=== PATIENT | female | born 1950 | race Caucasian/White ===

== ENCOUNTER 2016-10-29 12:33 | Inpatient (IN) | payer MEDICARE, BC ==
[~2016-10-29] VITALS: Ht 172.7 cm; Wt 78.7 kg
[2016-10-29] MEDS ORDERED: CLOP75TA PO (15:21)
[2016-10-29] MEDS ORDERED: FOSA70TA PO (15:23)
[2016-10-29] MEDS ORDERED: MULTTAB67 PO (15:23)
[2016-10-29] MEDS ORDERED: LOSA100T2 PO (15:23)
[2016-10-29] MEDS ORDERED: SIMV80TA PO (15:23)
[2016-11-02] VITALS (7 sets, daily range): BP systolic 107–145; BP diastolic 54–66; PULSE 61–78; RESP 16–20; TEMP 97.8–98.4; O2SAT 92–98
[2016-11-02] MEDS ORDERED: METOPROLOL TARTRATE 25 MG TAB PO PRN (06:15)
[2016-11-02] MEDS ORDERED: INSULIN HUMAN REGULAR 1,000 UNITS/10 ML VIAL SQ PRN (06:15)
[2016-11-02] MEDS ORDERED: SODIUM CHLORID 0.9% 500 ML IV PRN (06:15)
[2016-11-02] MEDS ORDERED: CHLORHEXIDINE GLUCONATE 2 % 1 PACK (2 CLOTHS) TOPICAL PRN (06:15)
[2016-11-02] MEDS ORDERED: LACTATED RINGER'S 1000 ML IV PRN (06:15)
[2016-11-02] MEDS ORDERED: POVIDONE IODINE 5% (ANTISEPSIS KIT) 4 APPLICATIONS EACH NARE PRN (06:15)
[2016-11-02] MEDS ORDERED: BUPIVACAINE HCL PF 0.5% 30 ML VIAL ONE (07:36)
[2016-11-02] MEDS ORDERED: HEPARIN SODIUM - IV 10,000 UNITS/10 ML VIAL ONE (07:36)
[2016-11-02] MEDS ORDERED: ceFAZolin 2 GM PREMIX 50 ML ONE (07:36)
[2016-11-02] MEDS ORDERED: PROTAMINE SULFATE 50 MG/5 ML VIAL ONE (07:37)
[2016-11-02] MEDS ORDERED: MIDAZOLAM HCL 2 MG/2 ML VIAL ONE (07:48)
--- NOTE | 2016-11-02 08:31 | PD.RAD ---
Post Procedure Progress Note Pre Procedure Diagnosis: (1) Thoracic aneurysm without mention of rupture Post Procedure Diagnosis: (1) Thoracic aneurysm without mention of rupture Procedure Date: Nov 02, 2016 Supervising Radiologist: Jayme Saavedra JR Proceduralist/Assist: Fanta Heath, RT(R)(CV), Shanice Church RT(R) Anesthesia: Conscious Sedation Plan of Activity Patient to Unit: ROPU Patient Condition: Good See PACS Report for procedural detail/treatment Spinal Procedure Lumbar Drain T11 Fluid Description: Clear Findings: Lumbar drain enters thecal sac at L3. Tip at T11-12 disk space. Clear CSF noted. Sampling not requested. Plan Management of drain per admitting team. Jr. Quentin,Jayme Hines MD Nov 02, 2016 08:31
[2016-11-02] MEDS ORDERED: ACETAMINOPHEN 1000 MG/100 ML VIAL IV ONE ×2 (08:59→09:08)
[2016-11-02] MEDS ORDERED: DEXMEDETOMIDINE HCL 200 MCG/2 ML VIAL ONE (08:59)
[2016-11-02] MEDS ORDERED: FAMOTIDINE 20 MG/2 ML VIAL ONE (08:59)
[2016-11-02] MEDS ORDERED: methylPREDNISolone SOD SUCC 125 MG/2 ML VIAL ONE (09:00)
--- NOTE | 2016-11-02 09:04 | HHI.HP ---
History of Present Illness Chief Complaint: thoracic aortic aneurysm History of Present Illness 66 yo female with asymptomatic thoracic aneursym, discovered incidentally during w/u with CT for diverticulitis Past/Family/Social History Past Medical History diverticulitis HTN tobacco Past Surgical History AURELIANO Social History smoker Family History NC Home Medications Reported Medications Alendronate (Fosamax)70 Mg Tab70 Mg PO Q7D #4 TAB Ref 0 10/29/16 Multiple Vitamin 1 Tab1 Tab PO DAILY Ref 0 10/29/16 Losartan-Hydrochlorothiazide 100-25 Mg Tab1 Tab PO DAILY #30 TAB Ref 0 10/29/16 Simvastatin 80 Mg Tab80 Mg PO DAILY #30 TAB Ref 0 10/29/16 Clopidogrel 75 Mg Tab75 Mg PO DAILY #30 TAB Ref 0 10/29/16 Coded Allergies: Erythromycin (Verified Allergy, Severe, RASH, 10/29/16) Review of Systems Constitutional: DENIES: Diaphoretic episodes, Fatigue, Fever, Weight gain, Weight loss, Chills, Dizziness, Change in appetite, Night Sweats Cardiovascular: DENIES: Chest pain, Palpitations, Syncope, Dyspnea on Exertion , PND, Lower Extremity Edema, Orthopnea, Claudication Gastrointestinal: DENIES: Abdominal pain, Black stools, Bloody stools, Constipation, Diarrhea, Nausea, Vomiting, Difficulty Swallowing, Anorexia Physical Exam Vitals/I&O Date Time Temp Pulse Resp B/P Pulse Ox O2 Delivery O2 Flow Rate FiO2 11/02/16 06:29 98.2 69 16 107/62 94 Neuro: alert, oriented, no focal deficits HEENT: NC/AT Neck: no JVD Heart: reg rate, no M Lungs: clear B Abdomen: nontender Vascular: palpable femoral and radial pulses Extremities: no C/C/E Laboratory Tests Test 11/02/16 06:30 Blood Type B POSITIVE Antibody Screen NEGATIVE Blood Bank Comment Assessment and Plan Plan TEVAR rec'd spinal drain this morning I have discussed all complications with patient and . phone number [phone] Kevin Blanco MD Nov 02, 2016 09:04
[2016-11-02] MEDS: LACTATED RINGER'S 1000 ML INJ 1,000 ML IV SCH ×2 (09:27→22:26)
--- NOTE | 2016-11-02 09:41 | RADRPT ---
EXAM DATE/TIME: 11/02/2016 07:40 [facility] COMPARISON: No previous studies available for comparison. INDICATIONS : Patient having lumbar drain pre op for a TAG. MEDICAL HISTORY : 1. Stroke x3 2. [place] 3. HTN 4. Colitis 5. Uterine ca 6. lt breast ca SURGIAL HISTORY : 1. Left masectomy 2. colon resection 3. Hysterectomy ENCOUNTER: Initial ACUITY: >1 year PAIN SCORE: 0/10 LUMBAR PUNCTURE TIME: 0816 hours FLUORO TIME: 1.7 minutes IMAGE SERIES: 0 SEDATION TIME: 30 minutes LEVEL: Tip of lumbar drain was placed at T11 MEDICATION(S): 1.) 2 mg midazolam (Versed) IV 2.) 100 mcg fentanyl (Sublimaze) IV DEVICE(S): 1.) 5 Danish lumbar drain catheter PROCEDURE : 1. Fluoroscopically guided lumbar drain placement. 2. Conscious sedation with continuous EKG and oximetry monitoring. The risks, benefits and alternatives to the procedure were explained and verbal and written consent w as obtained. The site was prepped in sterile fashion. Full sterile technique was used, including ca p, mask, sterile gloves and gown and a large sterile sheet. Hand hygiene and 2% chlorhexidine and/or betadine/alcohol prep was utilized per protocol for cutaneous antisepsis. The skin and subcutaneous tissues were infiltrated with local anesthetic solution. With fluoroscopic guidance the lumbar thecal sac was punctured at the L3-L4 level with a 14 gauge Jimmy hy needle and a lumbar drain was placed with its tip at the T11-T12 disc space level and the catheter was sutured in place. CSF was identified returning from the catheter at the termination of the proce dure. The CSF is clear. Conscious sedation was performed with the prescribed dosages and duration as above in the presence of an independent trained radiology nurse to assist in the monitoring of the patient. EKG and oximetry remained stable throughout the procedure. The patient tolerated the procedure well and there were n o complications. The patient was sent to post anesthesia recovery in stable condition. CONCLUSION: Uncomplicated lumbar drain placement as above. Jayme Saavedra Jr., MD on November 02, 2016 at 9:36 Board Certified Radiologist. This report was verified electronically.
[2016-11-02] MEDS ORDERED: IOHEXOL 300 MG/ML 50 ML BTL (for RAD DIAG) OTHER ONE (09:51)
[2016-11-02] MEDS ORDERED: fentaNYL CITRATE 250 MCG/5 ML AMP ONE (11:14)
--- NOTE | 2016-11-02 11:20 | HHI.PR ---
Immediate Post Op Note Procedure Date: Nov 02, 2016 Pre Op Diagnosis: descending thoracic aortic aneurysm Post Op Diagnosis: descending thoracic aortic aneurysm Surgeon: Kevin Blanco Snailer(s): Chance Juarez Procedure: TEVAR IVUS of aorta R BATTERY TECHNICIAN Perclose L BATTERY TECHNICIAN Angioseal Findings: successful exclusion of aneurysm Additional Information: + Doppler signals B LE Complications: none apparent Specimen(s) removed: none Estimated blood loss: 20mL Anesthesia: General Drains: Other (spinal drain (placed by IR preoperatively)) Fluids: 1700ml xoid; 175 mL UOP Patient to: Other (CVICU) Patient Condition: Good Implant/Devices: SEE IMPLANT LOG (if applicable) Date/Time of Procedure: SEE SURGICAL CARE RECORD Kevin Blanco MD Nov 02, 2016 11:20
[2016-11-02 11:47] LABS: HEMATOCRIT 35.7 % (35.0-46.0); MEAN CELL VOLUME 83.1 FL (80.0-100.0); MEAN CORPUSCULAR HEMOGLOBIN 27.6 PG (27.0-34.0); MEAN CORPUSCULAR HGB CONC 33.2 % (32.0-36.0); PLATELET COUNT 167 TH/MM3 (150-450); RED CELL DISTRIBUTION WIDTH 13.2 % (11.6-17.2); REVIEW FLAG FINAL; WHITE BLOOD COUNT 6.7 TH/MM3 (4.0-11.0)
[2016-11-02 11:58] LABS: POTASSIUM 3.1 MEQ/L (3.5-5.1)
[2016-11-02] MEDS ORDERED: NORMOSOL R INJ 1,000 ML IV ONE (12:00)
[2016-11-02] MEDS ORDERED: ONDANSETRON HCL 4 MG/2 ML VIAL IV PUSH ONE (12:00)
[2016-11-02] MEDS ORDERED: PHENYLEPH/NS 1000 MCG/10 ML SYR IV ONE (12:00)
[2016-11-02] MEDS ORDERED: NEOSTIGMINE 3 MG/3 ML SYR IV ONE (12:00)
[2016-11-02] MEDS ORDERED: PROPOFOL 200 MG/20 ML AMP IV ONE (12:00)
[2016-11-02] MEDS ORDERED: ePHEDrine/NS 25 MG/5 ML SYR IV ONE (12:00)
[2016-11-02] MEDS ORDERED: POTASSIUM CHLORIDE 25 MEQ EFFERVESCENT TAB PO PRN (13:15)
[2016-11-02] MEDS ORDERED: POTASSIUM CHLOR 20 MEQ PREMIX 100 ML IV PRN (13:15)
[2016-11-02] MEDS ORDERED: MAGNESIUM SULFATE INJ 2 GM in SODIUM CHLORIDE 0.9% INJ 96 ML IV PRN (13:15)
[2016-11-02] MEDS ORDERED: POTASSIUM PHOSPHATE INJ 30 MMOL in SODIUM CHLOR 0.9% 250 ML INJ 250 ML IV PRN (13:15)
[2016-11-02] MEDS ORDERED: RESP: ALBUTEROL 2.5 MG/IPRATROPIUM 0.5 MG NEB (PRN) NEB (13:15)
[2016-11-02] MEDS ORDERED: POTASSIUM PHOSPHATE MONOBASIC 500 MG TAB PO/TUBE PRN (13:15)
[2016-11-02] MEDS ORDERED: MAGNESIUM OXIDE 400 MG TAB PO PRN (13:15)
[2016-11-02] MEDS ORDERED: MAGNESIUM SULFATE INJ 4 GM in SODIUM CHLORIDE 0.9% INJ 92 ML IV PRN (13:15)
[2016-11-02] MEDS ORDERED: POTASSIUM CHLOR 40 MEQ PREMIX 100 ML IV PRN ×2 (13:15)
[2016-11-02] MEDS ORDERED: POTASSIUM PHOSPHATE MONOBASIC 500 MG TAB PO PRN (13:15)
[2016-11-02] MEDS ORDERED: IOHEXOL 300 MG/ML 100 ML BTL (for Rad CT) OTHER ONE (13:36)
--- NOTE | 2016-11-02 13:42 | RADRPT ---
EXAM DATE/TIME: 11/02/2016 12:35 [facility] COMPARISON: No previous studies available for comparison. INDICATIONS : Post Tevar surgery. MEDICAL HISTORY : Hypertension. Carcinoma, breast. Colitis,Uterine ca SURGICAL HISTORY : Hysterectomy. colon resection,Left masectomy ENCOUNTER: Subsequent ACUITY: 4 - 6 days PAIN SCORE: 0/10 LOCATION: Bilateral chest FINDINGS: Stent material is seen in the descending thoracic aorta. The heart is normal in size. There is increa sed density at the medial left lung base. The right lung demonstrates minimal increased density. No e ffusion is seen. CONCLUSION: 1. Left lower lobe consolidation or atelectasis. 2. Minimal atelectasis or consolidation at the right base. 3. Stent material in the descending thoracic aorta. Amilcar Price MD on November 02, 2016 at 13:38 Board Certified Radiologist. This report was verified electronically.
--- NOTE | 2016-11-02 14:05 | MB ---
cc: MIKEY SELBY M.D. DATE OF CONSULTATION: 11/02/2016 DATE OF : 1950 HISTORY OF PRESENT ILLNESS The patient is a 66-year-old female with a past medical history of diverticulitis, hypertension, breast cancer, who was found to have asymptomatic descending thoracic aneurysm which was discovered incidentally during a work-up with CT for diverticulitis. She underwent thoracic endovascular aortic repair by Dr. Blanco and a lumbar drain was placed by interventional radiology preoperatively. Critical care medicine was consulted post-op for critical care management. When seen in CVICU the patient is awake, alert, lying comfortable in bed, in no acute respiratory distress. She is on 3 liters oxygen with good saturation. The patient denies any chest pain, shortness of breath or any abdominal pain. In addition, she denies any nausea, vomiting or GI symptoms. PAST MEDICAL HISTORY 1. Hypertension. 2. Diverticulitis. 3. Breast cancer. 4. Hyperlipidemia. PAST SURGICAL HISTORY 1. Previous mastectomy. 2. Previous cholecystectomy. 3. Previous hysterectomy. 4. Ankle surgery. FAMILY HISTORY Noncontributory. SOCIAL HISTORY The patient quit smoking a year and a half ago, and has a [id number] history of smoking. Non-drinker. ALLERGIES ERYTHROMYCIN. MEDICATIONS Reported medications include: 1. Simvastatin. 2. Plavix. 3. Multivitamins. 4. Fosamax. 5. Losartan/hydrochlorothiazide. REVIEW OF SYSTEMS As per HPI. The rest of the review of systems is unremarkable. PHYSICAL EXAMINATION GENERAL: A 66-year-old female lying in bed in no acute respiratory distress. VITAL SIGNS: Afebrile with temperature 97.8, pulse 64, blood pressure 139/52, saturation 99% on 3 liter oxygen. HEENT: Atraumatic, normocephalic. Pupils equal, round and reactive to light and accommodation. Extraocular muscles intact. Conjunctiva pink. Anicteric sclera. Oral mucosa within normal. NECK: Supple. No JVD, adenopathy or thyromegaly. Trachea in the midline. CARDIOVASCULAR: Regular rate and rhythm. Normal S1, S2. No murmurs, rubs or gallops noted. PULMONARY: Bilateral air entry. No rales or wheezing. ABDOMEN: Soft, nontender, no distention. Positive bowel sounds. EXTREMITIES: No cyanosis, clubbing or edema. NEUROLOGIC: No focal sensory deficit. LABORATORY WBC 6.7, hemoglobin 11.8, hematocrit 35, platelet count 167. Sodium 139, potassium 3.1, chloride 103, CO2 26, BUN 21, creatinine 0.8, glucose 149, calcium 8.1. IMPRESSION 1. Respiratory insufficiency. 2. Descending thoracic aortic aneurysm. 3. Status post thoracic endovascular aneurysm repair and lumbar drain placement by interventional radiology preoperatively. 4. Hypertension. 5. Hyperlipidemia. 6. Hypokalemia. 7. History of tobacco abuse. PLAN/RECOMMENDATIONS 1. Monitor neuro status closely and avoid sedatives. The patient is on a Narcan drip at 1 mg an hour per vascular surgery. 2. Continue with Dilaudid p.r.n. for pain. 3. Continue with oxygen to maintain sats above 92%. 4. Bronchodilators in the form of DuoNeb q.6h., plus q.2h. p.r.n. for shortness of breath. 5. Monitor heart rate and blood pressure closely and maintain MAP greater than 65 mmHg. Continue with aspirin and Lipitor. 6. Monitor renal function, I's and O's, and electrolyte replacement per protocol. Will need potassium replacement. The patient is on LR at 83 mL an hour. 7. Keep n.p.o. for now and continue with Pepcid 20 mg p.o. b.i.d. Start p.o. diet once cleared by vascular surgery. 8. Monitor for signs of infection which include fever and WBC. Panculture if spikes a fever and will obtain a baseline chest x-ray post-op. 9. Sliding scale insulin if needed for glycemic control. 10.Monitor CBC. 11.GI prophylaxis with Pepcid 20 mg b.i.d. 12.DVT prophylaxis with SCDs; in addition the patient is on heparin 5000 units q.8h. starting tomorrow. 13.Further recommendations will be based on the hospital course. MD BALTA Jones/TYRONE /1:21 PM /1:40 PM
[2016-11-02] MEDS: POTASSIUM CHLOR 20 MEQ PREMIX 100 ML IV PRN ×3 (14:25→18:17)
[2016-11-02] MEDS ORDERED: DEXTROSE 5% IV SCH ×2 (17:00)
[2016-11-02] MEDS ORDERED: NALOXONE IV SCH ×2 (17:00)
[2016-11-02] MEDS ORDERED: WATER IV SCH ×2 (17:00)
[2016-11-02] MEDS: RESP: ALBUTEROL 2.5 MG/IPRATROPIUM 0.5 MG NEB (SCH) NEB ×2 (18:24→22:32)
[2016-11-02] MEDS: FAMOTIDINE 20 MG TAB PO SCH (21:34)
[2016-11-02] MEDS: DOCUSATE SODIUM 100 MG CAP PO SCH (21:34)
[2016-11-02] MEDS: ATORVASTATIN 40 MG TAB PO SCH (21:34)
--- NOTE | 2016-11-02 22:53 | MP ---
cc: QUE BLANCO MD DATE OF SURGERY 11/02/16 PREOPERATIVE DIAGNOSIS Descending thoracic aortic aneurysm POSTOPERATIVE DIAGNOSIS Descending thoracic aortic aneurysm PROCEDURE 1. Thoracic endovascular aortic stent (TEVAR) not involving left subclavian artery. 2. Intravascular ultrasound of aorta. 3. Right common femoral artery Perclose 4. Left common femoral artery Angio-Seal. ATTENDING MARIBEL Blanco MD COOPERATIVE MANAGER SURGEON Jhonatan Juarez. ANESTHESIA General INDICATIONS Ms. Jon is a 66-year old lady with a descending thoracic aortic aneurysm that measures nearly 6 cm. It appears amendable to endovascular therapy and she was taken to the operating room for this. PROCEDURE IN DETAIL Informed consent was obtained from the patient. She was taken to the operating room and placed supine on the operating table. An appropriate time out was taken to ensure the correct operative site and the planned procedure. Interventional radiology performed a spinal drain prior to surgery in order to attempt to decrease her risk of spinal cord ischemia. The patient was placed in operating room and appropriate time-out was taken and placed under general anesthesia. She was prepped from nipples to knees. A 21 gauge micropuncture needle was used to access the right common femoral artery. This was exchanged using Seldinger technique for a micropuncture sheath which is a 0.035 Storq wire was introduced and the micropuncture sheath was exchanged for a 5-Kuwaiti sheath. The 5-Kuwaiti sheath was removed and two Perclose ProGlide sutures were inserted and tagged and not tied down. These would be used later. An 8-Kuwaiti sheath was introduced. On the left-hand side a 21 gauge micropuncture needle was used to access the left common femoral artery. This was exchanged using Seldinger technique for a micropuncture sheath through which a 0.035 wire introduced and the micropuncture sheath was exchanged for a 5-Ku[place]i sheath. The patient was systemically heparinized with 8000 units of IV heparin and ACT was confirmed to be greater than 250. Storq wire was advanced to the ascending aorta and over the right hand Storq wire a catheter was placed and the Strorq was exchanged for a Lunderquist. On the left hand stroq a marker flush pigtail catheter was placed. Intravascular ultrasound catheter was then placed over the Lunderquist wire and images of the aorta were obtained. This clearly noted the location of the celiac artery and confirmed the diameters of the graft to be selected. Based on an aortic diameter of 31-33 mm a 38-mm graft was selected. The IVUS catheter was removed and the 8-Kuwaiti sheath was removed. Jyoti dilators were used to dilate the skin and subcutaneous tract and arteriotomy and the main device which was a Medtronic Valiant 38 x 200 was introduced until the distal aspect of the graft was immediately cephalad to the celiac artery. The graft was deployed without difficulty. The deployment sheath was removed and a 20-Kuwaiti Sentrant sheath was introduced. A Storq wire was passed through the pigtail catheter on the left and the pigtail was then removed and then replaced through the center of the graft. A reliant balloon was used to balloon the proximal and distal aspects and a completion angiogram showed excellent result without any perfusion of the thoracic aneurysm. The wire catheter and sheath were removed. The Perclose were tied down, providing hemostasis in the groin. There was a Doppler signal of the foot and heparin was reversed with protamine. The right groin was closed with a 4-0 Monocryl. A Storq wire was advanced to the left pigtail catheter and the pigtail catheter was removed. The 5-Kuwaiti sheath was removed and left groin was closed with a 6-Kuwaiti Angio-Seal. There were no complications. I was present and scrubbed and performed the entire procedure. MD JAGDEEP Santiago/ /11:33 AM /10:35 PM [facility]
[2016-11-03] VITALS (8 sets, daily range): BP systolic 124–152; BP diastolic 41–77; PULSE 68–81; RESP 16–18; TEMP 98–98.4; O2SAT 78–96
[2016-11-03 04:36] LABS: AUTOMATED NEUTROPHIL # 9.8 TH/MM3 (1.8-7.7); BASOPHIL % 0.1 % (0.0-2.0); HEMATOCRIT 31.1 % (35.0-46.0); HEMO FLAGS DIFF FINAL; LYMPH % 3.7 % (9.0-44.0); LYMPHOCYTE # 0.4 TH/MM3 (1.0-4.8); MEAN CELL VOLUME 82.1 FL (80.0-100.0); MEAN CORPUSCULAR HEMOGLOBIN 28.5 PG (27.0-34.0); MEAN CORPUSCULAR HGB CONC 34.8 % (32.0-36.0); MONO % 6.5 % (0.0-8.0); NEUT % 89.7 % (16.0-70.0); PLATELET COUNT 149 TH/MM3 (150-450); RED BLOOD COUNT 3.79 MIL/MM3 (4.00-5.30); RED CELL DISTRIBUTION WIDTH 13.1 % (11.6-17.2); WHITE BLOOD COUNT 10.9 TH/MM3 (4.0-11.0)
[2016-11-03 04:53] LABS: BICARBONATE 27.6 MEQ/L (21.0-32.0); MAGNESIUM 1.9 MG/DL (1.5-2.5); POTASSIUM 4.2 MEQ/L (3.5-5.1)
[2016-11-03] MEDS: RESP: ALBUTEROL 2.5 MG/IPRATROPIUM 0.5 MG NEB (SCH) NEB ×4 (04:57→20:56)
[2016-11-03] MEDS ORDERED: ONDANSETRON HCL 4 MG/2 ML VIAL ONE (05:33)
[2016-11-03] MEDS: SODIUM PHOSPHATE INJ 30 MMOL in SODIUM CHLOR 0.9% 250 ML INJ 240 ML IV PRN (07:51)
--- NOTE | 2016-11-03 08:04 | PD.VS.PN ---
Subjective POD #: 1 Procedure(s): TEVAR Subjective/Hospital Course + burping but no nausea or emesis mild headache otherwise neuro intact PRATHER no chest/back pain Objective Vitals/I&O Date Time Temp Pulse Resp B/P Pulse Ox O2 Delivery O2 Flow Rate FiO2 11/03/16 03:00 73 11/03/16 03:00 98.4 73 18 94 124/41 11/02/16 23:00 78 11/02/16 23:00 98.3 78 20 121/62 92 138/61 11/02/16 22:35 18 11/02/16 22:33 94 Nasal Cannula 1.00 11/02/16 19:00 77 11/02/16 19:00 98.2 77 18 110/54 94 138/66 11/02/16 15:34 98.4 64 18 144/56 98 11/02/16 15:00 64 11/02/16 11:00 97.8 61 16 145/61 98 11/02/16 11:00 62 11/03/16 11/03/16 11/03/16 07:00 15:00 23:00 Intake Total 2778 ml Output Total 821 ml Balance 1957 ml Exam: Neuro intact B groin access sites c/d/i without hematoma Pulses: + B LE Laboratory Laboratory Tests Test 11/02/16 11/02/16 11/02/16 11/03/16 09:51 10:05 11:10 01:30 Blood Type B POSITIVE B POSITIVE Crossmatch Leukocyte-Reduced Red Blood Cells Blood Bank Comment White Blood Count 6.7 Red Blood Count 4.30 Hemoglobin 11.8 Hematocrit 35.7 Mean Corpuscular Volume 83.1 Mean Corpuscular Hemoglobin 27.6 Mean Corpuscular Hemoglobin 33.2 Concent Red Cell Distribution Width 13.2 Platelet Count 167 Mean Platelet Volume 7.7 Sodium Level 139 Potassium Level 3.1 4.2 Chloride Level 103 Carbon Dioxide Level 26.0 Anion Gap 10 Blood Urea Nitrogen 21 Creatinine 0.81 Estimat Glomerular Filtration 70 Rate Random Glucose 149 Calcium Level 8.1 Phosphorus Level 3.0 Test 11/03/16 04:05 White Blood Count 10.9 Red Blood Count 3.79 Hemoglobin 10.8 Hematocrit 31.1 Mean Corpuscular Volume 82.1 Mean Corpuscular Hemoglobin 28.5 Mean Corpuscular Hemoglobin 34.8 Concent Red Cell Distribution Width 13.1 Platelet Count 149 Mean Platelet Volume 8.3 Neutrophils (%) (Auto) 89.7 Lymphocytes (%) (Auto) 3.7 Monocytes (%) (Auto) 6.5 Eosinophils (%) (Auto) 0.0 Basophils (%) (Auto) 0.1 Neutrophils # (Auto) 9.8 Lymphocytes # (Auto) 0.4 Monocytes # (Auto) 0.7 Eosinophils # (Auto) 0.0 Basophils # (Auto) 0.0 CBC Comment DIFF FINAL Differential Comment Sodium Level 139 Potassium Level 4.2 Chloride Level 106 Carbon Dioxide Level 27.6 Anion Gap 5 Blood Urea Nitrogen 16 Creatinine 0.75 Estimat Glomerular Filtration 77 Rate Random Glucose 117 Calcium Level 7.6 Phosphorus Level 2.2 Magnesium Level 1.9 Assessment and Plan Plan POD#1 s/p TEVAR, neuro intact 1. Clamp spinal drain and continue q1h neuro checks - anticipate removal of drain tomorrow 2. Hold sq heparin until 24h after drain out 3. Reg diet 4. HOB 30deg 5. HL IVF 6. Goal SBP about 140 still Discharge Planning likely Tue/Tue Kevin Blanco MD Nov 03, 2016 08:03
--- NOTE | 2016-11-03 08:43 | HHI.CCPN ---
Subjective Remarks/Hospital Course HPI The patient is a 66-year-old female with a past medical history of diverticulitis, hypertension, breast cancer who was found to have descending thoracic aneurysm which was discovered incidentally with a CT imaging for diverticulitis. She underwent thoracic endovascular aortic repair by Dr. Blanco and a lumbar drain was placed by interventional radiology preoperatively. Critical care medicine was consulted postoperatively for critical care management. When seen in CVICU the patient is awake, alert, lying comfortably fully in bed, in no acute respiratory distress. She is on 3 L nasal cannula oxygen with good saturation. The patient denies any chest pain, shortness of breath or any abdominal pain. In addition she denies any nausea vomiting or GI symptoms. Subjective: 11/03: Afebrile.Overnight the patient's systolic blood pressure was maintained 135 to 140s. The patient complained of gaseous abdominal distention patient received Zofran 1 dose and sincere beck with resolution of symptoms.. The patient oxygen level requirements have decreased currently at 1 L/m. The patient's tolerating a heart healthy diet. Objective Vital Signs Date Time Temp Pulse Resp B/P Pulse Ox O2 Delivery O2 Flow Rate FiO2 11/03/16 03:00 73 11/03/16 03:00 98.4 18 94 124/41 11/02/16 22:33 Nasal Cannula 1.00 Intake and Output 11/02/16 11/02/16 11/03/16 08:00 16:00 00:00 Intake Total 1372 ml Output Total 987 ml Balance 385 ml Result Diagram: 11/03/16 0405 11/03/16 0405 Imaging Last Impressions Lumbar Puncture Fluoroscopy 11/02/16 0000 Signed Impressions: Service Date/Time: Wednesday, November 02, 2016 07:40 - CONCLUSION: Uncomplicated lumbar drain placement as above. Jayme Saavedra Jr., MD Chest X-Ray 11/02/16 0000 Signed Impressions: Service Date/Time: Wednesday, November 02, 2016 12:35 - CONCLUSION: 1. Left lower lobe consolidation or atelectasis. 2. Minimal atelectasis or consolidation at the right base. 3. Stent material in the descending thoracic aorta. Amilcar Price MD Objective Remarks GENERAL: Well-developed well-nourished female in no apparent distress resting comfortably in bed SKIN: Warm and dry. HEAD: Atraumatic. Normocephalic. EYES: Pupils equal and round. No scleral icterus. No injection or drainage. ENT: No nasal bleeding or discharge. Mucous membranes pink and moist. NECK: Trachea midline. No JVD. CARDIOVASCULAR: Normal rate, regular rhythm. RESPIRATORY: No accessory muscle use. Clear to auscultation. Breath sounds equal bilaterally. GASTROINTESTINAL: Abdomen soft, non-tender, nondistended. No guarding. MUSCULOSKELETAL: Extremities without clubbing, cyanosis, or edema. No obvious deformities. Noted bruising bilateral great toe secondary to injury received approximately 1 month ago, no erythema or drainage. NEUROLOGICAL: Awake and alert. RASS 0. No gross focal/sensory deficits. Follows commands in all 4 extremities. Lumbar drain in situ draining clear CSF. No edema drainage noted at lumbar drain site.Motor strength 5/5 bilateral upper and lower extremities A/P Assessment and Plan IMPRESSION 1. Respiratory insufficiency. 2. Descending thoracic aortic aneurysm. 3. Status post thoracic endovascular aneurysm repair and lumbar drain placement , POD #1 by interventional radiology preoperatively. 4. Hypertension. 5. Hyperlipidemia. 6. Hypokalemia. 7. History of tobacco abuse. PLAN/RECOMMENDATIONS 1. Monitor neuro status closely and avoid sedatives. The patient is on a Narcan drip 1mcg/kg/hr per vascular surgery management. 2. Continue with Dilaudid p.r.n. for pain. 3. Continue with oxygen to maintain sats above 92%. 4. Bronchodilators in the form of DuoNeb q.6h., plus q.2h. p.r.n. for shortness of breath. 5. Monitor heart rate and blood pressure closely and maintain SBP 140-160's. Continue with aspirin and Lipitor. 6. Monitor renal function, I's and O's, and electrolyte replacement per protocol. Will need potassium replacement. The patient is on LR at 83 mL an hour. 7. Heart healthy diet and continue with Pepcid 20 mg p.o. b.i.d. 8. Monitor for signs of infection which include fever and WBC. Panculture if spikes a fever and will obtain a baseline chest x-ray post-op. 9. Sliding scale insulin if needed for glycemic control. 10.Monitor CBC. 11.GI prophylaxis with Pepcid 20 mg b.i.d. 12.DVT prophylaxis with SCDs; in addition the patient is on heparin 5000 units q.8h. starting post removal of lumbar drain. 13.Further recommendations will be based on the hospital course. Dispo: Discussed with BUSINESS SERVICES COORDINATOR and patient at bedside. All questions answered. Level 3 Physician Martha Cooper MD Nov 03, 2016 08:43
[2016-11-03] MEDS: FAMOTIDINE 20 MG TAB PO SCH ×2 (09:51→21:54)
[2016-11-03] MEDS: ASPIRIN 81 MG CHEW TAB PO SCH (09:51)
[2016-11-03] MEDS: DOCUSATE SODIUM 100 MG CAP PO SCH ×2 (09:51→21:54)
[2016-11-03] MEDS ORDERED: HEPARIN SODIUM - SQ 10,000 UNITS/ML VIAL SQ SCH (10:00)
[2016-11-03] MEDS: ONDANSETRON HCL 4 MG/2 ML VIAL IV PUSH PRN ×2 (12:47→18:13)
[2016-11-03] MEDS: ATORVASTATIN 40 MG TAB PO SCH (21:55)
[2016-11-04] VITALS (7 sets, daily range): BP systolic 113–169; BP diastolic 59–80; PULSE 64–77; RESP 18; TEMP 98.7–99.8; O2SAT 92–99
[2016-11-04] MEDS: ONDANSETRON HCL 4 MG/2 ML VIAL IV PUSH PRN (01:42)
[2016-11-04] MEDS: RESP: ALBUTEROL 2.5 MG/IPRATROPIUM 0.5 MG NEB (SCH) NEB ×4 (04:04→21:36)
[2016-11-04 04:29] LABS: HEMATOCRIT 30.6 % (35.0-46.0); MEAN CELL VOLUME 82.4 FL (80.0-100.0); MEAN CORPUSCULAR HEMOGLOBIN 28.2 PG (27.0-34.0); MEAN CORPUSCULAR HGB CONC 34.2 % (32.0-36.0); PLATELET COUNT 135 TH/MM3 (150-450); RED BLOOD COUNT 3.71 MIL/MM3 (4.00-5.30); RED CELL DISTRIBUTION WIDTH 13.2 % (11.6-17.2); REVIEW FLAG FINAL; WHITE BLOOD COUNT 8.3 TH/MM3 (4.0-11.0)
[2016-11-04 05:01] LABS: BICARBONATE 29.3 MEQ/L (21.0-32.0); MAGNESIUM 1.8 MG/DL (1.5-2.5); POTASSIUM 3.6 MEQ/L (3.5-5.1)
--- NOTE | 2016-11-04 06:25 | RADRPT ---
EXAM DATE/TIME: 11/04/2016 06:03 [facility] COMPARISON: No previous studies available for comparison. INDICATIONS : Abdominal pain. MEDICAL HISTORY : Hypertension. Carcinoma, breast. Colitis SURGICAL HISTORY : Hysterectomy. Colon resection. Mastectomy, left. Tevar ENCOUNTER: Initial ACUITY: 2 days PAIN SCORE: 0/10 LOCATION: Bilateral Abdomen FINDINGS: Gas is seen in multiple nondistended loops of small and large bowel. Catheter projects over the righ t abdomen. Rectal probe in place. Thoracic aortic stent. Left lower lobe consolidation. Hemoclips in the right midabdomen. CONCLUSION: No dilated loops of small or large bowel. Jayme De Paz MD on November 04, 2016 at 6:23 Board Certified Radiologist. This report was verified electronically.
[2016-11-04] MEDS: SODIUM PHOSPHATE INJ 30 MMOL in SODIUM CHLOR 0.9% 250 ML INJ 240 ML IV PRN (07:32)
--- NOTE | 2016-11-04 07:40 | HHI.CCPN ---
Subjective Remarks/Hospital Course HPI The patient is a 66-year-old female with a past medical history of diverticulitis, hypertension, breast cancer who was found to have descending thoracic aneurysm which was discovered incidentally with a CT imaging for diverticulitis. She underwent thoracic endovascular aortic repair by Dr. Blanco and a lumbar drain was placed by interventional radiology preoperatively. Critical care medicine was consulted postoperatively for critical care management. When seen in CVICU the patient is awake, alert, lying comfortably fully in bed, in no acute respiratory distress. She is on 3 L nasal cannula oxygen with good saturation. The patient denies any chest pain, shortness of breath or any abdominal pain. In addition she denies any nausea vomiting or GI symptoms. Subjective: 11/03: Afebrile.Overnight the patient's systolic blood pressure was maintained 135 to 140s. The patient complained of gaseous abdominal distention patient received Zofran 1 dose and sincere beck with resolution of symptoms.. The patient oxygen level requirements have decreased currently at 1 L/m. The patient's tolerating a heart healthy diet. 11/04: Afebrile .Patient complained of insomnia last night. Patient also had one episode of nausea, and complained of excessive gas/ indigestion. She received 1 dose of Zofran last evening. Simethicone chews added to medication regimen. Objective Vital Signs Date Time Temp Pulse Resp B/P Pulse Ox O2 Delivery O2 Flow Rate FiO2 11/04/16 07:21 98 Simple Mask 15.00 11/04/16 03:00 99.6 77 18 164/80 Intake and Output 11/03/16 11/03/16 11/04/16 08:00 16:00 00:00 Intake Total 2778 ml 920 ml Output Total 821 ml 700 ml Balance 1957 ml 220 ml Result Diagram: 11/04/16 0355 11/04/16 0355 Imaging Last Impressions Lumbar Puncture Fluoroscopy 11/02/16 0000 Signed Impressions: Service Date/Time: Wednesday, November 02, 2016 07:40 - CONCLUSION: Uncomplicated lumbar drain placement as above. Jayme Saavedra Jr., MD Chest X-Ray 11/02/16 0000 Signed Impressions: Service Date/Time: Wednesday, November 02, 2016 12:35 - CONCLUSION: 1. Left lower lobe consolidation or atelectasis. 2. Minimal atelectasis or consolidation at the right base. 3. Stent material in the descending thoracic aorta. Amilcar Price MD Objective Remarks GENERAL: Well-developed well-nourished female in no apparent distress resting comfortably in bed SKIN: Warm and dry. HEAD: Atraumatic. Normocephalic. EYES: Pupils equal and round. No scleral icterus. No injection or drainage. ENT: No nasal bleeding or discharge. Mucous membranes pink and moist. NECK: Trachea midline. No JVD. CARDIOVASCULAR: Normal rate, regular rhythm. RESPIRATORY: No accessory muscle use. Clear to auscultation. Breath sounds equal bilaterally. GASTROINTESTINAL: Abdomen soft, non-tender, nondistended. No guarding. MUSCULOSKELETAL: Extremities without clubbing, cyanosis, or edema. No obvious deformities. Noted bruising bilateral great toe secondary to injury received approximately 1 month ago, no erythema or drainage. NEUROLOGICAL: Awake and alert. RASS 0. No gross focal/sensory deficits. Follows commands in all 4 extremities. Lumbar drain in situ clamped. No edema drainage noted at lumbar drain site.Motor strength 5/5 bilateral upper and lower extremities. Brisk capillary refill. A/P Assessment and Plan IMPRESSION 1. Respiratory insufficiency. 2. Descending thoracic aortic aneurysm. 3. Status post thoracic endovascular aneurysm repair and lumbar drain placement , POD #1 by interventional radiology preoperatively. 4. Hypertension. 5. Hyperlipidemia. 6. Hypokalemia. 7. History of tobacco abuse. PLAN/RECOMMENDATIONS 1. Monitor neuro status closely and avoid sedatives. The patient is on a Narcan drip 1mcg/kg/hr per vascular surgery management. Melatonin 5 mg every at bedtime when necessary for insomnia 2. Continue with Dilaudid p.r.n. for pain. 3. Continue with oxygen to maintain sats above 92%. 4. Bronchodilators in the form of DuoNeb q.6h., plus q.2h. p.r.n. for shortness of breath. 5. Monitor heart rate and blood pressure closely and maintain SBP 140-160's. Continue with aspirin and Lipitor. 6. Monitor renal function, I's and O's, and electrolyte replacement per protocol. Repletion phosphorus this a.m. 7. Heart healthy diet and continue with Pepcid 20 mg p.o. b.i.d. , Simethicone chew after meals and before bedtime PRN . 8. Monitor for signs of infection which include fever and WBC. Panculture if spikes a fever and will obtain a baseline chest x-ray post-op. 9. Sliding scale insulin if needed for glycemic control. 10.Monitor CBC. 11.GI prophylaxis with Pepcid 20 mg b.i.d. 12.DVT prophylaxis with SCDs; in addition the patient is on heparin 5000 units q.8h. starting post removal of lumbar drain(11/05). Plan removal of drain this a.m. 13. Encourage incentive spirometry use Q one hour while awake 14.Further recommendations will be based on the hospital course. Dispo: Discussed with CLINICAL SERVICES PROFESSIONAL and patient at bedside. All questions answered. Thank you for the participation in care of this patient. Critical care medicine will sign off. Level 2 Physician Martha Cooper MD Nov 04, 2016 07:40
--- NOTE | 2016-11-04 08:51 | PD.VS.PN ---
Subjective POD #: 2 Procedure(s): TEVAR Subjective/Hospital Course less burping, still no nausea - KUB unremarkable Neuro intact no CALLEJAS Objective Vitals/I&O Date Time Temp Pulse Resp B/P Pulse Ox O2 Delivery O2 Flow Rate FiO2 11/04/16 07:21 98 Simple Mask 15.00 11/04/16 03:00 99.6 77 18 164/80 93 11/04/16 03:00 77 11/03/16 23:00 98.2 81 18 149/73 93 11/03/16 23:00 81 11/03/16 20:53 95 Nasal Cannula 1.00 11/03/16 19:00 98.2 78 18 152/77 95 11/03/16 19:00 78 11/03/16 15:00 75 11/03/16 15:00 98.0 68 18 141/72 93 11/03/16 11:00 72 11/03/16 11:00 98.0 71 16 146/68 96 11/03/16 09:11 95 Nasal Cannula 1.00 11/04/16 11/04/16 11/04/16 06:59 14:59 22:59 Intake Total 583 ml Output Total 900 ml Balance -317 ml Exam: 07/23 B LE strength Groins ok Laboratory Laboratory Tests Test 11/04/16 03:55 White Blood Count 8.3 Red Blood Count 3.71 Hemoglobin 10.5 Hematocrit 30.6 Mean Corpuscular Volume 82.4 Mean Corpuscular Hemoglobin 28.2 Mean Corpuscular Hemoglobin 34.2 Concent Red Cell Distribution Width 13.2 Platelet Count 135 Mean Platelet Volume 8.4 Sodium Level 134 Potassium Level 3.6 Chloride Level 101 Carbon Dioxide Level 29.3 Anion Gap 4 Blood Urea Nitrogen 8 Creatinine 0.65 Estimat Glomerular Filtration 91 Rate Random Glucose 116 Calcium Level 7.6 Phosphorus Level 1.9 Magnesium Level 1.8 Assessment and Plan Plan POD#2 s/p TEVAR, neuro intact 1. Remove spinal drain at 1000 and continue q1h neuro checks 2. OOB/PT/Soto out after drain out 3. Reg diet, normalize 4. ok to transfer to [facility] 6h after drain out 5. D/C a-[place] Discharge Planning likely Tue/Tue Kevin Blanco MD Nov 04, 2016 08:51
[2016-11-04] MEDS: FAMOTIDINE 20 MG TAB PO SCH ×2 (09:00→21:04)
[2016-11-04] MEDS: SIMETHICONE 80 MG CHEWABLE TAB CHEW PRN ×4 (09:00→17:35)
[2016-11-04] MEDS ORDERED: MELATONIN 5 MG TAB PO PRN (09:00)
[2016-11-04] MEDS: ASPIRIN 81 MG CHEW TAB PO SCH (09:00)
[2016-11-04] MEDS: DOCUSATE SODIUM 100 MG CAP PO SCH ×2 (09:00→21:04)
[2016-11-04] MEDS: ATORVASTATIN 40 MG TAB PO SCH (21:04)
[2016-11-04] MEDS: HYDROmorphone HCL 2 MG TAB PO PRN (21:05)
[2016-11-05] VITALS: BP 117/68; PULSE 69; PULSE 70; RESP 18; O2SAT 93
[2016-11-05 04:00] VITALS: BP 131/70; PULSE 70; PULSE 96; RESP 18; TEMP 98.6; O2SAT 94
[2016-11-05] MEDS: HYDROmorphone HCL 2 MG TAB PO PRN (04:15)
[2016-11-05] MEDS: RESP: ALBUTEROL 2.5 MG/IPRATROPIUM 0.5 MG NEB (SCH) NEB ×2 (04:28→09:37)
[2016-11-05 07:00] VITALS: BP 117/60; PULSE 69; PULSE 71; RESP 18; TEMP 98.6; O2SAT 94
--- NOTE | 2016-11-05 08:26 | PD.VS.PN ---
Subjective POD #: 3 Procedure(s): TEVAR Subjective/Hospital Course spinal drain out alejandro reg food OOB and ambulating voiding on own feels great overall Objective Vitals/I&O Date Time Temp Pulse Resp B/P Pulse Ox O2 Delivery O2 Flow Rate FiO2 11/05/16 04:00 70 11/05/16 04:00 98.6 96 18 131/70 94 11/05/16 00:00 69 18 117/68 93 11/05/16 00:00 70 11/04/16 21:30 97 Nasal Cannula 2.00 11/04/16 20:00 74 11/04/16 20:00 99.1 74 18 113/59 92 11/04/16 15:00 99.8 64 18 126/66 94 11/04/16 15:00 70 11/04/16 11:00 99.1 75 18 130/66 95 Arterial Line 11/04/16 11:00 70 11/05/16 11/05/16 11/05/16 07:00 15:00 23:00 Intake Total 440 ml Output Total 750 ml Balance -310 ml Exam: neuro intact no chest tenderness Assessment and Plan Plan POD#3 s/p TEVAR, neuro intact after spinal drain removed yesterday; alejandro diet 1. D/C to home today 2. F/u 3 weeks with CTA C/A/P Discharge Planning likely Tue/Tue Kevin Blanco MD Nov 05, 2016 08:26
[2016-11-05] MEDS: FAMOTIDINE 20 MG TAB PO SCH (08:30)
[2016-11-05] MEDS: ASPIRIN 81 MG CHEW TAB PO SCH (08:30)
[2016-11-05] MEDS: DOCUSATE SODIUM 100 MG CAP PO SCH (08:30)
[2016-11-05] MEDS: SIMETHICONE 80 MG CHEWABLE TAB CHEW PRN (08:31)
[2016-11-05] MEDS ORDERED: PERC5TAB12 PO (08:35)
--- NOTE | 2016-11-05 08:42 | PD.VS.DC ---
Discharge Summary Admission Date: Nov 02, 2016 at 05:43 Discharge Date: Nov 05, 2016 Admission Diagnosis: (1) Thoracic aneurysm without mention of rupture Discharge Diagnosis: (1) Thoracic aneurysm without mention of rupture Status: Acute Brief History from admission 66 yo female with asymptomatic thoracic aneurysm, discovered incidentally during w/u with CT for diverticulitis Procedure(s): TEVAR Significant Findings GENERAL: A&OX3, GCS15,NAD SKIN: Warm and dry/ Bilat groins soft w/o hematoma, erythema present to R groin GASTROINTESTINAL: Abdomen soft, non-tender, nondistended. + BS MUSCULOSKELETAL: No cyanosis, or edema. Pt denies back or abdominal pain Laboratory Tests Test 11/02/16 11/03/16 11/04/16 11:10 04:05 03:55 Potassium Level 3.1 MEQ/L (3.5-5.1) Blood Urea Nitrogen 21 MG/DL (7-18) Estimat Glomerular Filtration 70 ML/MIN (>89) 77 ML/MIN (>89) Rate Random Glucose 149 MG/DL 117 MG/DL 116 MG/DL (74-106) (74-106) (74-106) Calcium Level 8.1 MG/DL 7.6 MG/DL 7.6 MG/DL (8.5-10.1) (8.5-10.1) (8.5-10.1) Red Blood Count 3.79 MIL/MM3 3.71 MIL/MM3 (4.00-5.30) (4.00-5.30) Hemoglobin 10.8 GM/DL 10.5 GM/DL (11.6-15.3) (11.6-15.3) Hematocrit 31.1 % 30.6 % (35.0-46.0) (35.0-46.0) Platelet Count 149 TH/MM3 135 TH/MM3 (150-450) (150-450) Neutrophils (%) (Auto) 89.7 % (16.0-70.0) Lymphocytes (%) (Auto) 3.7 % (9.0-44.0) Neutrophils # (Auto) 9.8 TH/MM3 (1.8-7.7) Lymphocytes # (Auto) 0.4 TH/MM3 (1.0-4.8) Phosphorus Level 2.2 MG/DL 1.9 MG/DL (2.5-4.9) (2.5-4.9) Sodium Level 134 MEQ/L (136-145) Anion Gap 4 MEQ/L (5-15) Hospital Course: 66 yo female with asymptomatic thoracic aneurysm, discovered incidentally during w/u with CT for diverticulitis Pt s/p TEVAR w/o complications Pt w/o abdominal/ back pain Allergies Coded Allergies Type Severity Reaction Last Updated Verified erythromycin base Allergy Severe RASH 11/02/16 Yes Recent Impressions Abdomen X-Ray 11/04/16 0000 Signed Impressions: Service Date/Time: October 06:03 - CONCLUSION: No dilated loops of small or large bowel. Jayme De Paz MD ///// 06:00 18:00 06:00 18:00 06:00 18:00 Intake Total 2778 ml 920 ml 583 ml 1209 ml Output Total 821 ml 700 ml 900 ml 1750 ml Balance 1957 ml 220 ml -317 ml -541 ml Intake Oral 740 ml 200 ml 480 ml 920 ml IV Total 2038 ml 720 ml 103 ml 289 ml Output Urine Total 685 ml 700 ml 900 ml 1750 ml Drainage Total 136 ml 0 ml 0 ml 0 ml # Bowel Movements 0 0 0 0 Laboratory Tests Test 11/02/16 11/02/16 11/02/16 11/03/16 09:51 10:05 11:10 01:30 Blood Type B POSITIVE B POSITIVE Crossmatch Leukocyte-Reduced Red Blood Cells Blood Bank Comment White Blood Count 6.7 TH/MM3 Red Blood Count 4.30 MIL/MM3 Hemoglobin 11.8 GM/DL Hematocrit 35.7 % Mean Corpuscular Volume 83.1 FL Mean Corpuscular Hemoglobin 27.6 PG Mean Corpuscular Hemoglobin 33.2 % Concent Red Cell Distribution Width 13.2 % Platelet Count 167 TH/MM3 Mean Platelet Volume 7.7 FL Sodium Level 139 MEQ/L Potassium Level 3.1 MEQ/L 4.2 MEQ/L Chloride Level 103 MEQ/L Carbon Dioxide Level 26.0 MEQ/L Anion Gap 10 MEQ/L Blood Urea Nitrogen 21 MG/DL Creatinine 0.81 MG/DL Estimat Glomerular Filtration 70 ML/MIN Rate Random Glucose 149 MG/DL Calcium Level 8.1 MG/DL Phosphorus Level 3.0 MG/DL Test 11/03/16 11/04/16 04:05 03:55 White Blood Count 10.9 TH/MM3 8.3 TH/MM3 Red Blood Count 3.79 MIL/MM3 3.71 MIL/MM3 Hemoglobin 10.8 GM/DL 10.5 GM/DL Hematocrit 31.1 % 30.6 % Mean Corpuscular Volume 82.1 FL 82.4 FL Mean Corpuscular Hemoglobin 28.5 PG 28.2 PG Mean Corpuscular Hemoglobin 34.8 % 34.2 % Concent Red Cell Distribution Width 13.1 % 13.2 % Platelet Count 149 TH/MM3 135 TH/MM3 Mean Platelet Volume 8.3 FL 8.4 FL Neutrophils (%) (Auto) 89.7 % Lymphocytes (%) (Auto) 3.7 % Monocytes (%) (Auto) 6.5 % Eosinophils (%) (Auto) 0.0 % Basophils (%) (Auto) 0.1 % Neutrophils # (Auto) 9.8 TH/MM3 Lymphocytes # (Auto) 0.4 TH/MM3 Monocytes # (Auto) 0.7 TH/MM3 Eosinophils # (Auto) 0.0 TH/MM3 Basophils # (Auto) 0.0 TH/MM3 CBC Comment DIFF FINAL Differential Comment Sodium Level 139 MEQ/L 134 MEQ/L Potassium Level 4.2 MEQ/L 3.6 MEQ/L Chloride Level 106 MEQ/L 101 MEQ/L Carbon Dioxide Level 27.6 MEQ/L 29.3 MEQ/L Anion Gap 5 MEQ/L 4 MEQ/L Blood Urea Nitrogen 16 MG/DL 8 MG/DL Creatinine 0.75 MG/DL 0.65 MG/DL Estimat Glomerular Filtration 77 ML/MIN 91 ML/MIN Rate Random Glucose 117 MG/DL 116 MG/DL Calcium Level 7.6 MG/DL 7.6 MG/DL Phosphorus Level 2.2 MG/DL 1.9 MG/DL Magnesium Level 1.9 MG/DL 1.8 MG/DL Procedure Category Date Status Time Acetaminophen Inj MED 11/02/16 Complete (Ofirmev Inj) 08:59 Dexmedetomidine Inj MED 11/02/16 In Process (Precedex Inj) 08:59 Famotidine Inj MED 11/02/16 Complete (Pepcid Inj) 08:59 Methylprednisolone So MED 11/02/16 Complete Succ Inj (Solumedr 09:00 Acetaminophen Inj MED 11/02/16 Complete (Ofirmev Inj) 09:08 Admit To Inpatient ADMITTING 11/02/16 Transmitted Code Status CODE 11/02/16 Transmitted 09:27 Vital Signs (Adult) JOSE G 11/02/16 In Process 09:27 Embossing Tool Setter / JOSE G 11/02/16 In Process Telemetry 09:27 Activity Bed Rest JOSE G 11/02/16 In Process 09:27 Notify Parameters JOSE G 11/02/16 In Process 09:27 Precautions JOSE G 11/02/16 In Process 09:27 Diet Npo DIET 11/02/16 Complete Breakfast Basic Metabolic Panel LAB 11/02/16 Complete (Bmp) 09:27 Basic Metabolic Panel LAB 11/03/16 Complete (Bmp) 06:00 Cbc No Diff, Includes LAB 11/02/16 Complete Plts 09:27 Chest, Single Ap RADDIAG 11/02/16 Resulted Consult Casino Supervisor CONS 11/02/16 Transmitted Lactated Ringer's MED 11/02/16 Complete 1000 Ml Inj (Lr 1000 M 09:27 Aspirin Chew (Aspirin MED 11/03/16 In Process Chew) 09:00 Famotidine (Pepcid) MED 11/02/16 In Process 21:00 Atorvastatin (Lipitor) MED 11/02/16 In Process 21:00 Oxycodone (Roxicodone) MED 11/02/16 In Process 09:30 Hydromorphone MED 11/02/16 In Process (Dilaudid) 09:30 Docusate Sodium MED 11/02/16 In Process (Colace) 21:00 Scd Bilateral/Knee JOSE G 11/02/16 In Process High 09:27 Inpatient ADMITTING 11/02/16 Transmitted Certification ^ Other Nursing Orders JOSE G 11/02/16 In Process 09:27 (Hub Use Only)Inp Phy CONS 11/02/16 Transmitted Cons/Ref 10:21 Am [facility] Complete Iohexol 300 Inj MED 11/02/16 Complete (Omnipaque 300 Inj) 09:51 Fentanyl Inj MED 11/02/16 Complete (Fentanyl Inj) 11:14 Heparin Inj (Heparin MED 11/03/16 Complete Inj) 10:00 ^ Medication Admin JOSE G 11/02/16 In Process Instruction 13:[address]: Jake JOSE G 11/02/16 In Process 13:01 Phosphorus (Po4) LAB 11/02/16 Complete 13:01 Potassium Chlor 40 MED 11/02/16 In Process Meq Premix (Kcl 40 Me 13:15 Potassium Chlor 20 MED 11/02/16 In Process Meq Premix (Kcl 20 Me 13:15 Potassium Chloride MED 11/02/16 In Process Eff (K-Lyte Cl Eff) 13:15 Potassium Chlor 40 MED 11/02/16 In Process Meq Premix (Kcl 40 Me 13:15 Potassium Chlor 20 MED 11/02/16 In Process Meq Premix (Kcl 20 Me 13:15 Magnesium Sulfate Inj MED 11/02/16 In Process (Magnesium Sulfate 13:15 Magnesium Oxide MED 11/02/16 In Process (Mag-Ox) 13:15 Magnesium Sulfate Inj MED 11/02/16 In Process (Magnesium Sulfate 13:15 Potassium Phosphate MED 11/02/16 In Process (K-Phos) 13:15 Sodium Phosphate Inj MED 11/02/16 In Process (Sodium Phosphate I 13:15 Potassium Phosphate MED 11/02/16 In Process (K-Phos) 13:15 Potassium Phosphate MED 11/02/16 In Process Inj (Potassium Phosp 13:15 Albuterol-Ipratropium MED 11/02/16 In Process Neb (Duoneb Neb) 16:00 Albuterol-Ipratropium MED 11/02/16 In Process Neb (Duoneb Neb) 13:15 Complete Blood Count LAB 11/03/16 Complete With Diff 06:00 Magnesium (Mg) LAB 11/03/16 Complete 06:00 Phosphorus (Po4) LAB 11/03/16 Complete 06:00 Diet Heart Healthy DIET 11/02/16 Transmitted Dinner ^ Other Nursing Orders JOSE G 11/02/16 In Process 16:18 Naloxone Inj (Narcan MED 11/02/16 Complete Inj) 17:00 Potassium, Serum (K) LAB 11/03/16 Complete 01:34 Ondansetron Inj MED 11/03/16 Complete (Zofran Inj) 05:33 Ondansetron Inj MED 11/03/16 In Process (Zofran Inj) 06:15 Heparin Inj (Heparin MED 11/05/16 In Process Inj) 10:00 ^ Other Nursing Orders JOSE G 11/03/16 In Process 07:59 Resp Incentive RSP 11/03/16 Complete Spirometry Basic Metabolic Panel LAB 11/04/16 Complete (Bmp) 06:00 Cbc No Diff, Includes LAB 11/04/16 Complete Plts 06:00 Magnesium (Mg) LAB 11/04/16 Complete 06:00 Phosphorus (Po4) LAB 11/04/16 Complete 06:00 Abdomen, Kub Only RADDIAG 11/04/16 Resulted Simethicone Chew MED 11/04/16 In Process (Mylicon Chew) 07:30 Melatonin (Melatonin) MED 11/04/16 In Process 09:00 Cbc No Diff, Includes LAB 11/05/16 In Process Plts 06:00 Basic Metabolic Panel LAB 11/05/16 In Process (Bmp) 06:00 ^ Other Nursing Orders JOSE G 11/04/16 In Process 08:41 ^ Other Nursing Orders JOSE G 11/04/16 In Process 08:41 ^ Other Nursing Orders JOSE G 11/04/16 In Process 08:41 ^ Other Nursing Orders JOSE G 11/04/16 In Process 08:41 ^ Other Nursing Orders JOSE G 11/04/16 In Process 08:41 Consult Pt Eval & Tx PT 11/04/16 Logged OOB 08:41 ^ Other Nursing Orders JOSE G 11/04/16 In Process 08:41 Invasive Rad Dept RADINV 11/04/16 Taken Consult 10:00 Patient Transfer ADMITTING 11/04/16 Transmitted 16:30 Attending Discharge DISCHARGE 11/05/16 Transmitted Order Vital Signs Date Time Temp Pulse Resp B/P Pulse Ox O2 Delivery O2 Flow Rate FiO2 11/05/16 04:00 70 11/05/16 04:00 98.6 96 18 131/70 94 11/05/16 00:00 69 18 117/68 93 11/05/16 00:00 70 11/04/16 21:30 97 Nasal Cannula 2.00 11/04/16 20:00 74 11/04/16 20:00 99.1 74 18 113/59 92 11/04/16 15:00 99.8 64 18 126/66 94 11/04/16 15:00 70 11/04/16 11:00 99.1 75 18 130/66 95 Arterial Line 11/04/16 11:00 70 11/04/16 07:21 98 Simple Mask 15.00 11/04/16 07:00 98.7 73 18 169/71 99 11/04/16 07:00 67 11/04/16 03:00 99.6 77 18 164/80 93 11/04/16 03:00 77 11/03/16 23:00 98.2 81 18 149/73 93 11/03/16 23:00 81 11/03/16 20:53 95 Nasal Cannula 1.00 11/03/16 19:00 98.2 78 18 152/77 95 11/03/16 19:00 78 11/03/16 15:00 75 11/03/16 15:00 98.0 68 18 141/72 93 11/03/16 11:00 72 11/03/16 11:00 98.0 71 16 146/68 96 11/03/16 09:11 95 Nasal Cannula 1.00 11/03/16 07:00 72 11/03/16 07:00 98.0 74 18 133/63 95 Automatic Cuff 11/03/16 03:00 73 11/03/16 03:00 98.4 73 18 94 124/41 11/02/16 23:00 78 11/02/16 23:00 98.3 78 20 121/62 92 138/61 11/02/16 22:35 18 11/02/16 22:33 94 Nasal Cannula 1.00 11/02/16 19:00 77 11/02/16 19:00 98.2 77 18 110/54 94 138/66 11/02/16 15:34 98.4 64 18 144/56 98 11/02/16 15:00 64 11/02/16 11:00 97.8 61 16 145/61 98 11/02/16 11:00 62 Discharge Condition: Good Discharge Disposition: Discharge Home Discharge Instructions: May Shower No tub baths until bilat groin incisions are fully healed F/U in 3W in our out patient clinic Call the office to report any new developments or concerns Vanessa DAY [facility] [phone] Any questions or concerns: Call [facility] Heart and Vascular Surgery at [facility] [phone] Vanessa Shankar Nov 05, 2016 08:42
[2016-11-05 09:06] LABS: HEMATOCRIT 31.2 % (35.0-46.0); MEAN CELL VOLUME 82.2 FL (80.0-100.0); MEAN CORPUSCULAR HEMOGLOBIN 28.2 PG (27.0-34.0); MEAN CORPUSCULAR HGB CONC 34.3 % (32.0-36.0); PLATELET COUNT 138 TH/MM3 (150-450); RED BLOOD COUNT 3.79 MIL/MM3 (4.00-5.30); RED CELL DISTRIBUTION WIDTH 12.8 % (11.6-17.2); REVIEW FLAG FINAL; WHITE BLOOD COUNT 6.5 TH/MM3 (4.0-11.0)
[2016-11-05 09:37] LABS: BICARBONATE 27.4 MEQ/L (21.0-32.0); POTASSIUM 3.2 MEQ/L (3.5-5.1)
[2016-11-05 09:38] VITALS: O2SAT 95
[2016-11-05] MEDS ORDERED: HEPARIN SODIUM - SQ 10,000 UNITS/ML VIAL SQ SCH (10:00)
== END 2016-11-05 10:59 | disposition home or self-care (01) | DRG 221 ==
LOC: HSDI 11-02 05:43 → HCVR 11-02 10:59
PROVIDERS: ADMIT Surgery; ATTEND Surgery
PROC: 009U30Z Drainage of Spinal Canal with Drainage Device, Percutaneous Approach (ICD-10-PCS; 2016-11-02)
PROC: 02VW3DZ Restriction of Thoracic Aorta, Descending with Intraluminal Device, Percutaneous Approach (ICD-10-PCS; principal; 2016-11-02 09:09)
DX: I71.2 Thoracic aortic aneurysm, without rupture (principal); I10 Essential (primary) hypertension; Z85.3 Personal history of malignant neoplasm of breast; E78.5 Hyperlipidemia, unspecified; Z87.891 Personal history of nicotine dependence; R06.89 Other abnormalities of breathing; E87.6 Hypokalemia; G47.00 Insomnia, unspecified
CPT/HCPCS: 63741; 71010; 74000; 75605; 77003; 80048; 83735; 84100; 84132; 85025; 85027; 86850; 86900; 86901; 86920; 94150; 94640; 94664; 99152; 99153; C1725; C1753; C1755; C1769; J0131; J0690; J1644; J2250; J2310; J2370; J2405; J2710; J2720; J2930; J3010; J3480; J7050; J7060; J7120; Q9967